=== PATIENT | female | born 1970 | race Caucasian/White ===

== ENCOUNTER 2024-05-19 19:18 | Emergency (ER) | payer OTHER ==
[2024-05-19 19:34] VITALS: O2SAT 99
[2024-05-19] MEDS: IBUPROFEN 600 MG TABLET PO STA (19:44)
[2024-05-19] MEDS: ACETAMINOPHEN 500 MG TABLET PO STA (19:44)
--- NOTE | 2024-05-19 19:49 | ED Physician Documentation ---
PD HPI UPPER EXT INJURY - Stated complaint Stated Complaint: L HAND INJ - Chief complaint Chief Complaint: Trauma Ext - Additonal information Additional information: 53-year-old female with no pertinent past medical history presents emergency department for left hand pain. Patient says that she lost her balance while she was holding something in her right hand she tried to catch herself with her left hand it hit something on the volar aspect. There is pain over the volar aspect of her left hand she is right-hand dominant. She did not hit her head she is not on any blood thinners. PD PAST MEDICAL HISTORY - Past Medical History Past Medical History: No Cardiovascular: None Respiratory: None Neuro: None Endocrine/Autoimmune: None GI: None REROLLER HAND: None : None HEENT: None Psych: None Musculoskeletal: None Derm: None - Past Surgical History Past Surgical History: No - Present Medications Home Medications: Ambulatory Orders Medication Instructions Recorded Confirmed No Known Home Medications 05/19/24 05/19/24 - Allergies Allergies/Adverse Reactions: Allergies Allergy/AdvReac Type Severity Reaction Status Date / Time No Known Drug Allergies Allergy Verified 05/19/24 19:28 - Social History Does the pt smoke?: No Smoking Status: Never smoker PD ED PE NORMAL - Vitals Vital signs reviewed: Yes - General General: Alert and oriented X 3, No acute distress, Well developed/nourished - Derm Derm: Normal color, Warm and dry, No rash - Extremities Extremities: Other (left hand volar swelling, limited ROM to left third finger, no open wounds no lacerations) Results - Vitals Vitals: Vital Signs - 24 hr 05/19/24 05/19/24 19:26 20:44 Temperature 36.8 C Heart Rate 68 72 Respiratory 16 16 Rate Blood Pressure 138/76 H 132/70 H O2 Saturation 99 99 Oxygen O2 Source Room air - Rads (name of study) Left hand Xrays Relevant Findings:: Final report received, EMP independent interpretation of test, Other (third metacrapal fracture) Procedures - Splint (location) - Minor left hand radial gutter splint Splint applied by: Physician (Dr. Langford) Type of splint: Fiberglass, Short arm, Other (radial gutter splint) Other: Patient tolerated well, No complications, Neurovascular intact, Good alignment PD Medical Decision Making - ED course ED course: 53-year-old female presents emerged department for left hand pain and swelling. X-rays completed and did reveal third metacarpal fracture. It appears to be minimally displaced and patient was placed in a radial splint by Dr. Zamorano. Patient lives in admittance that she said that she would do her own research with right hand specialist to follow-up with outpatient. Pain well-controlled with Tylenol ibuprofen she declines any need for prescription pain medication. Return precautions given all questions answered patient safe for discharge. Departure - Departure Disposition: 01 Home, Self Care Clinical Impression: Metacarpal bone fracture Qualifiers: Encounter type: initial encounter Metacarpal bone: third Fracture type: closed Metacarpal location: shaft Fracture alignment: nondisplaced Laterality: left Qualified Code(s): S62.353A - Nondisplaced fracture of shaft of third metacarpal bone, left hand, initial encounter for closed fracture Instructions: ED Cast Care Fiberglass, ED Fx Hand Closed Comments: Thank you for trusting us with your care. We have completed x-rays of your left hand and it does appear that you have a third metacarpal fracture. Please follow-up with a hand surgeon of your choice keep your splint on till you follow up with ortho. You can alternate between Tylenol ibuprofen for pain or discomfort. Forms: PCP List Discharge Date/Time: 05/19/24 20:45
--- NOTE | 2024-05-19 20:09 | XRAY Report ---
PROCEDURE: Hand 3+V LT INDICATIONS: Volar hand pain after fall TECHNIQUE: 3 views of the hand(s) acquired. COMPARISON: None. FINDINGS: Bones: Mildly displaced oblique fracture of the third metacarpal shaft. Soft tissues: No suspicious calcifications. IMPRESSION: Third metacarpal fracture Reviewed by: Pato Miller MD on 05/19/2024 8:08 PM PDT Approved by: Pato Miller MD on 05/19/2024 8:08 PM PDT Station ID: [id number]
[2024-05-19 20:50] VITALS: BP 132/70
== END 2024-05-19 20:45 | disposition home or self-care (01) ==
LOC: ED 19:18
DX: S62.353A Nondisplaced fracture of shaft of third metacarpal bone, left hand, initial encounter for closed fracture (principal); W18.30XA Fall on same level, unspecified, initial encounter
CPT/HCPCS: 29125; 73130; 99283; A9270